=== PATIENT | female | born 1980 | race American Indian/Alaskan Native ===

== ENCOUNTER 2018-05-08 15:26 | Emergency (ER) | payer SELFPAY ==
[2018-05-08] MEDS ORDERED: CLEOCIN 900 MG/50 mL 900 MG/50 ML BAG IV ONE (16:14)
[2018-05-08] MEDS ORDERED: NACL 0.9% 1000 ML 1,000 ML IV ONE ×2 (16:14→18:54)
[2018-05-08] MEDS ORDERED: DECADRON IV ONE (16:14)
--- NOTE | 2018-05-08 16:27 | Emergency Department Report ---
ED ENT HPI - General Chief complaint: Sore Throat Stated complaint: FACE SWOLLEN/DIFFICULTY SWALLOWING Time Seen by Provider: 05/08/18 16:07 Source: patient Mode of arrival: Ambulatory Limitations: No Limitations - History of Present Illness Initial comments: This is a 38-year-old female nontoxic, well nourished in appearance, no acute signs of distress presents to the ED with c/o of sore throat and dental pain x1 week. Patient describes sore throat as swallowing razer blades. Patient stated it started with wisdom tooth pain and went to a dentist and was told it was an abscess and was put on antibiotics. Patient stated is unable to swallow and has drooling and hoarseness. Patient stated has unable to eat for days. Patient denies any fever, chills, headache, stiff neck, nausea, vomiting, chest pain, shortness of breath, numbness or tingling. Patient stated allergies to PCN. Denies significant PMH. MD complaint: tooth pain, sore throat, difficulty swallowing -: week(s) Location: throat, tooth # Severity: severe Severity scale (0 -10): 10 Quality: aching Consistency: constant Improves with: none Worsens with: swallowing Context- Dental: history of dental caries Associated Symptoms: toothache, pain with swallowing, sore throat. denies: fever, cough, tinnitus, hearing loss, discharge from ear, rhinorrhea - Related Data Home Medications Medication Instructions Recorded Confirmed Last Taken No Known Home Medications [No 05/08/18 05/08/18 Unknown Reported Home Medications] Allergies Allergy/AdvReac Type Severity Reaction Status Date / Time Penicillins Allergy Hives Verified 05/08/18 17:29 ED Dental HPI - General Chief complaint: Sore Throat Stated complaint: FACE SWOLLEN/DIFFICULTY SWALLOWING Time Seen by Provider: 05/08/18 16:07 Source: patient Mode of arrival: Ambulatory Limitations: No Limitations - Related Data Home Medications Medication Instructions Recorded Confirmed Last Taken No Known Home Medications [No 05/08/18 05/08/18 Unknown Reported Home Medications] Allergies Allergy/AdvReac Type Severity Reaction Status Date / Time Penicillins Allergy Hives Verified 05/08/18 17:29 ED Review of Systems ROS: Stated complaint: FACE SWOLLEN/DIFFICULTY SWALLOWING Other details as noted in HPI Constitutional: denies: chills, fever Eyes: denies: eye pain, eye discharge, vision change ENT: throat pain, dental pain. denies: ear pain Respiratory: denies: cough, shortness of breath, wheezing Cardiovascular: denies: chest pain, palpitations Endocrine: no symptoms reported Gastrointestinal: denies: abdominal pain, nausea, diarrhea Genitourinary: denies: urgency, dysuria, discharge Musculoskeletal: denies: back pain, joint swelling, arthralgia Skin: denies: rash, lesions Neurological: denies: headache, weakness, paresthesias Psychiatric: denies: anxiety, depression Hematological/Lymphatic: denies: easy bleeding, easy bruising ED Past Medical Hx - Medications Home Medications: Home Medications Medication Instructions Recorded Confirmed Last Taken Type No Known Home Medications [No 05/08/18 05/08/18 Unknown History Reported Home Medications] ED Physical Exam - General Limitations: No Limitations General appearance: alert, in no apparent distress - Head Head exam: Present: atraumatic, normocephalic - Eye Eye exam: Present: normal appearance Pupils: Present: normal accommodation - ENT ENT exam: Present: mucous membranes moist - Expanded ENT Exam Expanded Ear exam: Present: normal external inspection Mouth exam: Present: trismus, muffled voice, tongue normal, tongue elevation. Absent: drooling, laceration Teeth exam: Present: other (unable to examine due to trismus) Throat exam: Positive: other (unable to examine due to trismus) - Neck Neck exam: Present: normal inspection, full ROM, lymphadenopathy (tonsillar right sided area). Absent: tenderness, meningismus - Expanded Neck Exam Expanded 1 - swelling present - Respiratory Respiratory exam: Present: normal lung sounds bilaterally. Absent: respiratory distress, wheezes, rales, rhonchi, stridor, chest wall tenderness, accessory muscle use, decreased breath sounds, prolonged expiratory - Cardiovascular Cardiovascular Exam: Present: regular rate, normal rhythm, normal heart sounds. Absent: bradycardia, tachycardia, irregular rhythm, systolic murmur, diastolic murmur, rubs, gallop - GI/Abdominal GI/Abdominal exam: Present: soft, normal bowel sounds - Extremities Exam Extremities exam: Present: normal inspection - Back Exam Back exam: Present: normal inspection - Neurological Exam Neurological exam: Present: alert, oriented X3 - Psychiatric Psychiatric exam: Present: normal affect, normal mood - Skin Skin exam: Present: warm, dry, intact, normal color. Absent: rash ED Course Vital Signs 05/08/18 05/08/18 05/08/18 15:43 20:32 20:33 Temperature 98.3 F 98.9 F Pulse Rate 86 82 Respiratory 20 20 20 Rate Blood Pressure 120/78 Blood Pressure 117/68 [Left] O2 Sat by Pulse 100 98 98 Oximetry - Reevaluation(s) Reevaluation #1: 05/08/18 16:34 Patient is speaking in full sentences with no signs of distress noted. - Consultations Consultation #1: 05/08/18 16:29 Patient has been consulted with Michelle Severino about patient history, physical exam, and examined and screened patient and agrees to ED plan of care. ED Medical Decision Making - Lab Data Result diagrams: 05/08/18 16:25 05/08/18 16:25 - Medical Decision Making This is a 38-year-old female that presents with submandibular abscess and leukocytosis. Patient is stable and was examined by me and Michelle Severino. Patient was put on NPO. Labs obtained. Patient received clindamycin IV. 1 liter normal saline. Morphine for pain. Airway intact. Patient to be transferred to [facility] for further treatment. Dr. Vasu V spoken with oral maxillary surgery from [facility] and accepted the patient. At time of transfer, the patient does not seem toxic or ill in appearance. No acute signs of distress noted. Patient agrees to transfer treatment plan of care. No further questions noted by the patient. Critical care attestation.: If time is entered above; I have spent that time in minutes in the direct care of this critically ill patient, excluding procedure time. ED Disposition Clinical Impression: Submandibular abscess Leukocytosis Qualifiers: Leukocytosis type: unspecified Qualified Code(s): D72.829 - Elevated white blood cell count, unspecified Disposition: DC/TX-70 ANOTHER TYPE HLTHCARE Is pt being admited?: No Condition: Stable Referrals: PRIMARY CARE, [Primary Care Provider] - 3-5 Days
[2018-05-08 16:52] LABS: Hematocrit 39.5 % (30.3-42.9); Hemoglobin 13.2 gm/dl (10.1-14.3); Mean Corpuscular HGB Conc 33 % (30-34); Mean Corpuscular Hemoglobin 27 pg (28-32); Mean Corpuscular Volume 81 fl (79-97); Platelet Count 405 K/mm3 (140-440); Red Blood Count 4.91 M/mm3 (3.65-5.03); Red Cell Distribution Width 14.1 % (13.2-15.2)
[2018-05-08 16:53] LABS: BUN/Creatinine Ratio 20; Blood Urea Nitrogen 12 mg/dL (7-17); Calcium 9.5 mg/dL (8.4-10.2); Hemolysis Index 0
[2018-05-08] MEDS ORDERED: MORPHINE IV ONE (17:10)
[2018-05-08] MEDS ORDERED: ZOFRAN IV ONE (17:10)
[2018-05-08 17:58] LABS: Band Neutrophils # (Manual) 0.2 K/mm3; Basophils % (Manual) 0 % (0.0-1.8); Eosinophils % (Manual) 0 % (0.0-4.3); Monocytes % (Manual) 8.5 % (0.0-7.3); Total Cells Counted 200
[2018-05-08 17:59] LABS: Platelet Estimate Consistent w Auto; RBC Morphology Normal
--- NOTE | 2018-05-08 18:01 | Cat Scan Report ---
FINAL REPORT EXAM: CT NECK W CON HISTORY: pain with facial swelling r/o abscess COMPARISON: None available. TECHNIQUE: Contiguous axial images were obtained. Additional sagittal and coronal reformatted images were obtained. Administration of IV contrast given per institution protocol. Images submitted for interpretation. FINDINGS: Focal soft tissue fullness minute edema involving the right palatine tonsil there is ill-defined area of low attenuation centrally in the right palatine tonsil concerning for phlegmon/early organizing abscess measuring 1.1 by 0.9 centimeters in axial dimension and 0.9 centimeters in craniocaudal dimension. Mild adjacent fat stranding within the parapharyngeal fat pad. Upper airway is patent. True vocal cords are symmetric. There is a prominent dental serena involving the posterior most right mandibular molar. This is concerning for dental abscess. There is associated soft tissue abscess at the posterior margin and buccal margin right mandible. The abscess extends inferiorly medially to involve the right sublingual region. Area of inflammation measures approximately 3.1 x 2.7 by 3.2 centimeters and causes displacement of the adjacent tongue musculature and mylohyoid musculature. There reactive right level 1 and 2 lymph nodes. For example there is a right level 1 B lymph node measuring 1.7 x 1.0 centimeters in axial dimension. Thyroid gland is unremarkable. There is mild reactive inflammation right submandibular gland related to the dental abscess. Remaining salivary glands are unremarkable. Visualized brain parenchyma ocular globes are unremarkable. Minimal mucosal thickening the paranasal sinuses. Great arterial vessels of the neck are grossly patent. IMPRESSION: There are 2 focal soft tissue inflammatory processes. Mild focal inflammation right palatine tonsil with developing phlegmon/early organizing abscess. More prominent soft tissue inflammatory process stems from a dental abscess arising from the posterior most right mandibular molar. There is associated soft tissue abscess at the medial inferior margin of the right mandible involving the sublingual space. There reactive right level 1 and 2 lymph nodes. There is also secondary inflammation right submandibular gland.
[2018-05-08] MEDS ORDERED: XYLOCAINE 1% 20 mL INFILTRATI ONE (18:11)
--- NOTE | 2018-05-08 18:34 | Emergency Department Report ---
Blank Doc - Documentation Documentation: [id number] was done by me. Patient has a an extensive amount of swelling in the submandibular space. Patient is has difficulty opening her mouth more than approximately a centimeter. I am able to visualize the area underneath the patient's tongue which showed very mild amount of swelling but is not pushing the tongue upwards. Patient's CT shows extensive area of inflammation abscess formation no sublingual space. Was very concerning for early Luis's angina. Patient also has some tonsillar abscess as well. Please refer to a KASHMIR note regarding the patient's continued management.
--- NOTE | 2018-05-08 20:02 | Emergency Department Report ---
Blank Doc - Documentation Documentation: I evaluated Ms. Mauro in order to facilitate transfer to facility with oral surgery. I initially spoke with Dr. Frazier ENT at [facility]. He recommended primary management with oral surgery. I spoke with Dr. Franklin MNCEAL specialist at [facility]. She requested that I speak with her colleague Dr. Oneal who has access to the surgical team at [facility]. I spoke with transfer nurse and Dr. Jm MCNEAL specialist. Dr Oneal accepted the patient to ED. On my exam was concerned for trismus and diffuse bilateral sub-mandibular extensive edema and induration. I reviewed labs that revealed highly elevated WBC. According to CT extensive swelling and inflammation arising from dental abscess of the right most posterior molar. Upper airway patent
[2018-05-08 20:33] VITALS: BP 117/68
== END 2018-05-08 22:35 | disposition other institution (70) ==
LOC: ED 15:26
DX: K12.2 Cellulitis and abscess of mouth (principal); D72.829 Elevated white blood cell count, unspecified
CPT/HCPCS: 36415; 70491; 80048; 83690; 84703; 85007; 85025; 96365; 96375; 99285; J1100; J2270; J2405; J7030; Q9967